=== PATIENT | female | born 1960 | race Caucasian/White ===

== ENCOUNTER 2016-11-23 15:35 | Observation (INO) ==
--- NOTE | 2016-11-23 15:52 | Emergency Department Note ---
Disposition Clinical Impression: Altered mental status Qualifiers: Altered mental status type: unspecified Qualified Code(s): R41.82 - Altered mental status, unspecified UTI (urinary tract infection) Qualifiers: Urinary tract infection type: acute cystitis Hematuria presence: without hematuria Qualified Code(s): N30.00 - Acute cystitis without hematuria Disposition: Admitted As Inpatient Condition: Fair Referrals: Adri Andujar MD [Primary Care Provider] - Time of Disposition: 17:17 Altered Mental Status HPI - General Stated Complaint: AMS LKW possible 10? Time Seen by Provider: 11/23/16 15:40 Source: patient, family Mode of arrival: ambulatory Limitations: altered mental status Nursing Notes Reviewed: Yes Vital Signs Reviewed: Yes - History of Present Illness HPI Narrative: 56-year-old had an acute onset of confusion asking the same questions over and over and short-term memory loss about 10:00 this morning. Daughter states that she did not appear to have any weakness or did not complain of any numbness or vision changes. Her symptoms seem to have improved some and she is able to say where she is at. She did have the episode of putatively asking the same things over and over and forgetting what had happened. Patient also complains of a headache. complaint: confusion, other (Short-term memory loss) Onset (ago): hour(s) (6) Timing confirmed by: family member Pain Severity: moderate Context: unknown Associated symptoms: Denies: chest pain, syncope, weakness, difficulty walking Treatments prior to arrival: other (None) - Related Data Allergies Allergy/AdvReac Type Severity Reaction Status Date / Time No Known Allergies Allergy Verified 11/23/16 17:40 All systems ED: reviewed and negative except as stated. Constitutional: Denies: fever, chills, weakness, weight change Eyes: Denies: eye pain, eye discharge, vision change ENT ED: Denies: ear pain, throat pain, dental pain, hearing loss, epistaxis, congestion, dysphagia Cardiovascular: Denies: chest pain, palpitations, dyspnea on exertion, edema, syncope Respiratory: Denies: cough, dyspnea, wheezes, hemoptysis, stridor Gastrointestinal: Denies: abdominal pain, nausea, vomiting, diarrhea, constipation, hematemesis, melena, hematochezia Genitourinary: Denies: dysuria, frequency, hematuria, discharge Musculoskeletal: Denies: back pain, neck pain, arthralgia, myalgia Integumentary: Denies: rash, abrasion, lesions Neurological: Reports: headache, other (Mental status short-term memory loss). Denies: weakness, numbness, paresthesias, confusion, abnormal gait, vertigo Psychiatric: Denies: anxiety, depression, suicidal thoughts, homicidal thoughts , auditory hallucinations, visual hallucinations Endocrine: Denies: fatigue Hematological/Lymphatic: Denies: easy bleeding, easy bruising Allergic/Immunologic: Denies: facial swelling, urticaria Physical Exam - General Limitations: no limitations General appearance: alert, in no apparent distress - Head Head exam: atraumatic, normocephalic, normal inspection - Eye Eye exam: Present: normal appearance, PERRL, EOMI - ENT ENT exam: normal exam, normal oropharynx, mucous membranes moist - Neck Neck exam: Present: normal inspection, full ROM, trachea midline - Chest Chest inspection: Present: normal inspection, symmetric chest wall rise - Respiratory Respiratory exam: Present: normal lung sounds bilaterally - Cardiovascular Cardiovascular exam: Present: regular rate, normal rhythm, normal heart sounds - Abdominal Exam Abdominal exam: Present: soft, Non-Tender. Absent: tenderness, distention, guarding, rebound, rigidity - Extremities Exam Extremities exam: Present: normal inspection, full ROM. Absent: tenderness, pedal edema - Expanded Lower Extremity Exam Neurovascular/Tendon exam: Absent: motor deficit, sensory deficit, tendon deficit Gait: observed and normal - Back Exam Back exam: Present: normal inspection, full ROM. Absent: tenderness - Neurological Exam Neurological exam: Present: alert, oriented X3, normal gait. Absent: motor sensory deficit - Psychiatric Psychiatric exam: Present: normal affect, normal mood - Skin Skin exam: Present: warm, dry, intact, normal color Course - Reevaluation(s) Reevaluation #1: 56-year-old female who comes in complaining of confusion and loss of short-term memory today asking repeatedly over and over the same question about a history of head trauma. No CT scan is negative. Lab work is unremarkable. There is some concern with family with the early onset dementia. Differential would include transient global amnesia. Time: 17:15 - Consultations Consultation #1: Discussed with , it. Time: 17:15 Consultation #2: Discussed with , admit Time: 17:55 Vital Signs Temperature 98.2 F 11/23/16 15:40 Pulse Rate 81 11/23/16 15:40 Respiratory Rate 16 11/23/16 15:40 Blood Pressure 139/86 11/23/16 15:40 O2 Sat by Pulse Oximetry 100 11/23/16 15:40 Temperature 98.2 F 11/23/16 15:40 Pulse Rate 88 11/23/16 17:47 Respiratory Rate 16 11/23/16 17:47 Blood Pressure 132/75 11/23/16 17:47 O2 Sat by Pulse Oximetry 97 11/23/16 17:47 Oxygen Delivery Oxygen Delivery Room Air Altered Mental Status - Lab Data Result diagrams: 11/23/16 16:00 11/23/16 16:00 Lab Results 11/23/16 11/23/16 11/23/16 Range/Units 15:47 16:00 16:00 WBC 8.0 (4.3-11.1) K/mcL RBC 4.56 (3.82-4.97) M/mcL Hgb 13.3 (11.5-15.4) g/dL Hct 39.8 (35.3-44.9) % MCV 87.3 (83.0-100.0) fL MCH 29.2 (28.0-33.3) pg MCHC 33.4 (31.6-35.5) g/dL RDW 12.0 (11.5-14.5) % Plt Count 311 (140-400) K/mcL MPV 8.6 L (9.4-12.4) fL Immature Gran % 0.1 (0-4) % Seg Neutrophils % 80.1 % Lymphocytes % 15.2 % Monocytes % 3.9 % Eosinophils % 0.3 % Basophils % 0.4 % Neutrophils # 6.4 (1.6-8.9) K/mcL Lymphocytes # 1.2 (0.6-4.6) K/mcL Monocytes # 0.3 (0.0-1.3) K/mcL Eosinophils # 0.0 (0.0-0.6) K/mcL Basophils # 0.0 (0.0-0.2) K/mcL PT 10.6 (9.4-12.1) Seconds INR 1.0 APTT 26.5 (26.0-36.0) Seconds Sodium (136-145) mEq/L Potassium (3.5-4.5) mEq/L Chloride (98-109) mEq/L Carbon Dioxide (19-29) mEq/L BUN (7-20) mg/dL Creatinine (0.57-1.11) mg/dL Est GFR ( Amer) (> 60) Est GFR (Non-Af Amer) (> 60) BUN/Creatinine Ratio (6-26) Glucose (70-99) mg/dL POC Glucose 107 H (58-89) Calculated Osmolality (280-300) Calcium (8.6-10.8) mg/dL Magnesium (1.6-2.6) mg/dL Troponin I (0-0.03) ng/mL Urine Color (Yellow) Urine Clarity (Clear) Urine pH (5.0-8.0) pH Units Ur Specific [place] (1.010-1.025) Urine Protein (Neg-Trace) mg/dL Urine Glucose (UA) (Normal) mg/dL Urine Ketones (Negative) mg/dL Urine Blood (Negative) Urine Nitrite (Negative) Urine Bilirubin (Negative) Urine Urobilinogen (Normal) mg/dL Ur Leukocyte Esterase (Negative) Urine Microscopic RBC (0-3) per hpf Urine Microscopic WBC (0-3) per hpf Ur Squamous Epith Cells (None-Few) per lpf Urine Bacteria (None-Few) per hpf Hyaline Casts (None-Few) per lpf Ur Culture Indicated? (NO) 11/23/16 11/23/16 11/23/16 Range/Units 16:00 16:00 17:15 WBC (4.3-11.1) K/mcL RBC (3.82-4.97) M/mcL Hgb (11.5-15.4) g/dL Hct (35.3-44.9) % MCV (83.0-100.0) fL MCH (28.0-33.3) pg MCHC (31.6-35.5) g/dL RDW (11.5-14.5) % Plt Count (140-400) K/mcL MPV (9.4-12.4) fL Immature Gran % (0-4) % Seg Neutrophils % % Lymphocytes % % Monocytes % % Eosinophils % % Basophils % % Neutrophils # (1.6-8.9) K/mcL Lymphocytes # (0.6-4.6) K/mcL Monocytes # (0.0-1.3) K/mcL Eosinophils # (0.0-0.6) K/mcL Basophils # (0.0-0.2) K/mcL PT (9.4-12.1) Seconds INR APTT (26.0-36.0) Seconds Sodium 139 (136-145) mEq/L Potassium 3.3 L (3.5-4.5) mEq/L Chloride 103 (98-109) mEq/L Carbon Dioxide 28 (19-29) mEq/L BUN 14 (7-20) mg/dL Creatinine 0.71 (0.57-1.11) mg/dL Est GFR ( Amer) > 60 (> 60) Est GFR (Non-Af Amer) > 60 (> 60) BUN/Creatinine Ratio 20 (6-26) Glucose 104 H (70-99) mg/dL POC Glucose (58-89) Calculated Osmolality 289 (280-300) Calcium 9.3 (8.6-10.8) mg/dL Magnesium 2.1 (1.6-2.6) mg/dL Troponin I 0.00 (0-0.03) ng/mL Urine Color Yellow (Yellow) Urine Clarity Cloudy A (Clear) Urine pH 8.0 (5.0-8.0) pH Units Ur Specific [place] 1.014 (1.010-1.025) Urine Protein Trace (Neg-Trace) mg/dL Urine Glucose (UA) Normal (Normal) mg/dL Urine Ketones 40 H (Negative) mg/dL Urine Blood Small H (Negative) Urine Nitrite Negative (Negative) Urine Bilirubin Negative (Negative) Urine Urobilinogen Normal (Normal) mg/dL Ur Leukocyte Esterase Small H (Negative) Urine Microscopic RBC 15-30 H (0-3) per hpf Urine Microscopic WBC 5-15 H (0-3) per hpf Ur Squamous Epith Cells Moderate H (None-Few) per lpf Urine Bacteria None Seen (None-Few) per hpf Hyaline Casts None Seen (None-Few) per lpf Ur Culture Indicated? YES A (NO) - EKG Data EKG attestation: Yes I reviewed and interpreted this EKG. EKG shows normal: sinus rhythm Rate: normal Rhythm: NSR Interpretation: no acute changes TPA Checklist - Eligibilty for IV tPA 1. LKW equal to or less than 4.5 hours be before treatment: No - LKW: 3-4.5 hrs Add. Warnings/Precautions Patient/family understanding: The patient/family members have been counseled and understood the risk, benefit , and alternatives of treatment. NIH Stroke Scale - Level of Consciousness LOC: Alert - LOC Questions LOC Questions: Answers both correctly - LOC Commands LOC Commands: Performs both correctly - Best Gaze Best Gaze: Normal - Visual Visual: No visual loss - Facial Palsy Facial Palsy: Normal - Motor Arms Motor Arm-Left: No drift for 10 seconds Motor Arm-Right: No drift for 10 seconds - Motor Legs Motor Leg-Left: No drift for 5 seconds Motor Leg-Right: No drift for 5 seconds - Limb Ataxia Limb Ataxia: Normal, No Ataxia - Sensory Sensory: Normal - Best Language Best Language: No aphasia - Dysarthria Dysarthria: Normal - Extinction and Inattention Extinction and Inattention: Normal - NIHSS Total Score NIHSS Total Score: 0
[2016-11-23 16:21] LABS: Basophils % 0.4 %; Eosinophils % 0.3 %; Hematocrit 39.8 % (35.3-44.9); Hemoglobin 13.3 g/dL (11.5-15.4); Immature Granulocytes % 0.1 % (0-4); Lymphocytes # 1.2 K/mcL (0.6-4.6); Lymphocytes % 15.2 %; Mean Corpuscular HGB Conc 33.4 g/dL (31.6-35.5); Mean Corpuscular Hemoglobin 29.2 pg (28.0-33.3); Mean Corpuscular Volume 87.3 fL (83.0-100.0); Mean Platelet Volume 8.6 fL (9.4-12.4); Monocytes # 0.3 K/mcL (0.0-1.3); Monocytes % 3.9 %; Neutrophils # 6.4 K/mcL (1.6-8.9); Platelet Count 311 K/mcL (140-400); Red Blood Count 4.56 M/mcL (3.82-4.97); Segmented Neutrophils % 80.1 %
[2016-11-23 16:25] LABS: Prothrombin Time 10.6 Seconds (9.4-12.1)
[2016-11-23 16:27] LABS: Activated Partial Thrombo Time 26.5 Seconds (26.0-36.0)
[2016-11-23 16:33] LABS: BUN/Creatinine Ratio 20 (6-26); Blood Urea Nitrogen 14 mg/dL (7-20); Calcium 9.3 mg/dL (8.6-10.8); Carbon Dioxide 28 mEq/L (19-29); Chloride 103 mEq/L (98-109); Glucose 104 mg/dL (70-99); Magnesium 2.1 mg/dL (1.6-2.6); Osmolality,Calculated 289 (280-300); Potassium 3.3 mEq/L (3.5-4.5); Sodium 139 mEq/L (136-145); eGFR For African Americans > 60 (> 60); eGFR For Non-African Americans > 60 (> 60)
[2016-11-23 17:20] LABS: Bilirubin,Urine Negative (Negative); Blood,Urine Small (Negative); Clarity,Urine Cloudy (Clear); Color,Urine Yellow (Yellow); Glucose,Urine (UA) Normal (Normal); Ketones,Urine 40 mg/dL (Negative); Leukocyte Esterase,Urine Small (Negative); Nitrite,Urine Negative (Negative); Protein,Urine Trace mg/dL (Neg-Trace); Specific Gravity,Urine 1.014 (1.010-1.025); Urobilinogen,Urine Normal (Normal)
[2016-11-23 17:25] LABS: Bacteria,Urine None Seen per hpf (None-Few); Hyaline Casts,Urine None Seen per lpf (None-Few); RBC,Urine 15-30 per hpf (0-3); Squamous Epithelial Cell,Urine Moderate per lpf (None-Few)
[2016-11-23] MEDS ORDERED: Acetaminophen 325 MG TABLET PO ONE (17:41)
[2016-11-23] MEDS ORDERED: Aspirin 81 MG TAB.CHEW PO STA (17:55)
[2016-11-23] MEDS ORDERED: Ondansetron 4 MG/2 ML VIAL IVP PRN (18:08)
[2016-11-23] MEDS ORDERED: Acetaminophen 325 MG TABLET PO PRN (18:08)
[2016-11-23] MEDS ORDERED: Naloxone 0.4 MG/ML INJ IVP PRN (18:08)
--- NOTE | 2016-11-23 19:00 | Internal Med History&Physical ---
<Sabrina Ramirez - Last Filed: 11/23/16 20:14> Date of Encounter: 11/23/16 Time of Encounter: 18:59 Assessment and Plan (1) TIA (transient ischemic attack) Current visit: Yes Status: Suspected 1 patient had an episode of headache this a.m. describing it as bandlike sharp. Approximately 10:00 and 11 AM the patient had an episode of emesis was unable to recall events of the day and would ask questions repetitively concerning events of the day. She has no past history of seizures stroke or head trauma. Unsure if this is related to migraine, infectious process, or TIA CT of head was negative for any intracranial abnormalities. 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 6 obtain cardiac echo 7 carotid Dopplers 8: Fall precautions Qualifiers: Transient cerebral ischemia type: unspecified Qualified Code(s): G45.9 - Transient cerebral ischemic attack, unspecified (2) UTI (urinary tract infection) Current visit: No Status: Acute We will continue with Rocephin Qualifiers: Urinary tract infection type: acute cystitis Hematuria presence: without hematuria Qualified Code(s): N30.00 - Acute cystitis without hematuria (3) DVT prophylaxis Current visit: Yes Status: Acute 1 Lovenox subcutaneous Internal Medicine - H&P: HPI Chief complaint: confusion Admitted From: Emergency Dept Plans for Post Hospital Care: Home History of present illness: Ms. Merrill is a 56 year old female past history of headaches. According to the patient she did have a headache this morning which she described as encircling her head describing the pain as sharp. She states that she has past history of headaches and she felt this was another episode. She did take some Motrin however around 10-11 she began to have vomiting and experienced confusion. According to daughters patient would repetitively ask questions, unsure of events that had occurred that day. Her confusion worsened, daughters became concerned and brought patient to the ER for evaluation She denied any weakness or vision changes or facial droop. Denies any recent falls or head trauma.. The daughters did express some concern with early onset of dementia. Upon presentation to the ER patient was slow to answer questions however was alert and oriented 3. CT of head was obtained which negative for any intracranial abnormalities. Urinalysis did suggest a mild UTI. The leukocytosis some hypokalemia otherwise lab work unremarkable. ER physician did speak with neurology who will see patient for consult She has been admitted for further workup and evaluation. Presently patient is alert oriented 3 following simple commands properly answering questions. Cranial nerves 2 through 12 are intact no focal deficits noted. Equal strength in all 4 extremities. Lung sounds are clear heart sounds are regular S1 and S2 with nogallops murmurs noted EKG sinus rhythm with no ST-T wave abnormalities. No pedal edema. She is hemodynamically stable at this time she denies any pain or discomfort I reviewed this case with Dr. Bermeo who agrees with plan Past Med Surg Social Fam HX - Past Medical History Medical history: no medical history Psychiatric history: no psych history - Social History Smoking Status: Never smoker Smokeless Tobacco Status: No Alcohol use: occasionally Drug use: none - Family History Mother Living Status: Still Living Hx Family Endocrine Disorder: Yes (DM) Internal Medicine - H&P: Meds 3 Allergy/AdvReac Type Severity Reaction Status Date / Time No Known Allergies Allergy Verified 11/23/16 17:40 All Systems PM: A 10-system review of systems was performed and is negative for pertinent findings except as documented above in the HPI. - Constitutional Constitutional: no chills, no fever(s), no night sweats - EENT Eyes: no change in vision, no discharge, no pain, no photophobia Nose, mouth and throat: no dysphagia, no nasal discharge, no neck pain, no sore throat - Cardiovascular Cardiovascular ROS IM: no chest pain, no diaphoresis, no dyspnea, no lightheadedness, no palpitations, no syncope - Respiratory Respiratory: no cough, no dyspnea, no wheezing, no excessive phlegm production - Gastrointestinal Gastrointestinal: no abdominal pain, no diarrhea, no hematemesis, no hematochezia, no melena, no nausea, no vomiting - Genitourinary Genitourinary: no change in urinary stream, no dysuria, no flank pain, no hematuria - Musculoskeletal Musculoskeletal ROS IM: no numbness, no tingling - Neurological Neurological ROS: headache(s), memory loss - Hematologic/Lymphatic Hematologic/Lymphatic: no easy bruising - Constitutional Vitals: Temp Pulse Resp BP Pulse Ox 98.6 F 79 15 125/70 95 11/23/16 18:57 11/23/16 18:57 11/23/16 18:57 11/23/16 18:57 11/23/16 18:57 General appearance: Present: A&O X 3, answers questions appropriately - Head Head exam: Present: atraumatic, normocephalic - Eye Eye exam: Present: PERRL, conjuntiva pink, sclera anicteric Pupils: Present: PERRL - Neck Neck exam general surgery: Present: supple, trachea midline. Absent: lymphadenopathy - Respiratory Respiratory exam: Present: CTAB. Absent: accessory muscle use, rales, rhonchi, wheezes - Cardiovascular Cardiovascular exam: Present: RRR, +S1, +S2. Absent: diastolic murmur, gallop, rubs, systolic murmur - GI/Abdominal GI/Abdominal exam: Present: normal bowel sounds, soft, no peritoneal signs. Absent: distended, tenderness - Extremities Exam Extremities exam: Present: warm, radial pulses palpable and symmetrical. Absent : calf tenderness, cyanotic, pedal edema - Neurological Exam Neurological exam: Present: alert, CN II-XII intact, oriented X3, no focal deficits, strengths equal and symetr throughout. Absent: pronater drift, facial droop, speech deficit - Skin Skin exam: Present: dry, intact Internal Med - H&P Results - Labs CBC & Chem 7: 11/23/16 16:00 11/23/16 16:00 - EKG Data EKG shows normal: sinus rhythm Rate: normal - EKG Data Prior EKG available for review: no - Diagnostic Studies Other Images Additional comments: Head CT 11/23/16 15:44 IMPRESSION: No acute intracranial abnormality. D/ / Petros Vidal MD / Petros Vidal MD Interpreting Provider: Petros Vidal MD Chest X-Ray 11/23/16 15:46 IMPRESSION: No acute process. D/ / Kirill Larsen MD / Kirill Larsen MD Interpreting Provider: Kirill Larsen MD <Min Horn - Last Filed: 11/23/16 23:54> Date of Encounter: 11/23/16 Internal Medicine - H&P: HPI History of present illness: Ms. Merrill is a 56 year old female All Systems PM: A 10-system review of systems was performed and is negative for pertinent findings except as documented above in the HPI. - Constitutional Vitals: Temp Pulse Resp BP Pulse Ox 97.9 F 76 15 111/62 95 11/23/16 23:26 11/23/16 23:26 11/23/16 23:26 11/23/16 23:26 11/23/16 23:26 Internal Med - H&P Results - Labs CBC & Chem 7: 11/23/16 16:00 11/23/16 16:00 Labs: Cardiac Enzymes 11/23/16 Range/Units 22:35 Troponin I 0.00 (0-0.03) ng/mL - Impressions ITS Impressions Brain MRI 11/23/16 19:34 IMPRESSION: No acute intracranial abnormality. Trace nonspecific cerebral white matter T2 FLAIR hyperintensities typical of chronic microvascular ischemic changes. D/ / Chris Kelley / Chris Kelley Interpreting Provider: Chris Kelley - Attending Attestation I examined this patient and my medical decision-making was reviewed with the [employer]. I agree with the documented findings, disposition and treatment plan as described except to the extent set forth below. Patient is a 56-year-old female with no significant past medical history. She presented to the ED with complaints of headache and intermittent episodes of confusion. No focal weakness or facial droop. No slurred speech. Patient's daughters are at bedside and they stated the patient has been having intermittent confusion throughout the day. At present patient is awake and alert. She is oriented 3. She does not have any focal deficits and she is able to verbalize and follows verbal commands. Initial workup including CT head is negative. Patient does have a UTI and has been started on Rocephin. EKG does not show any acute ST-T changes. Chest x-ray is negative. Stroke workup is pending. Patient just had an MRI of the brain and does not show any acute infarct. Patient will need echocardiogram and carotid Dopplers. Heart rate 76, blood pressure 111/62, O2 sat 95% on room air. Heart S1-S2 positive. Lungs: Good air entry no wheeze or crackles. Abdomen soft nontender no masses or guarding. Extremity pulses, no edema. Neurological no focal density screening nerves intact.
[2016-11-24 05:05] LABS: Basophils % 0.7 %; Eosinophils # 0.1 K/mcL (0.0-0.6); Hematocrit 36.6 % (35.3-44.9); Hemoglobin 12.5 g/dL (11.5-15.4); Immature Granulocytes % 0.2 % (0-4); Lymphocytes # 2.2 K/mcL (0.6-4.6); Lymphocytes % 36.3 %; Mean Corpuscular HGB Conc 34.2 g/dL (31.6-35.5); Mean Corpuscular Hemoglobin 30.3 pg (28.0-33.3); Mean Corpuscular Volume 88.6 fL (83.0-100.0); Mean Platelet Volume 8.7 fL (9.4-12.4); Monocytes # 0.5 K/mcL (0.0-1.3); Monocytes % 8.7 %; Neutrophils # 3.2 K/mcL (1.6-8.9); Platelet Count 308 K/mcL (140-400); Red Blood Count 4.13 M/mcL (3.82-4.97); Red Cell Distribution Width 12.1 % (11.5-14.5); Segmented Neutrophils % 52.1 %
[2016-11-24 05:24] LABS: BUN/Creatinine Ratio 17 (6-26); Blood Urea Nitrogen 13 mg/dL (7-20); Carbon Dioxide 26 mEq/L (19-29); Chloride 107 mEq/L (98-109); Chol/HDL Ratio 4.1 (0-4.9); Cholesterol 199 mg/dL (< 200); Glucose 90 mg/dL (70-99); HDL Cholesterol 49 mg/dL (40-59); LDL Cholesterol,Calculated 137 mg/dL (0-99); Magnesium 2.2 mg/dL (1.6-2.6); Osmolality,Calculated 290 (280-300); Potassium 3.8 mEq/L (3.5-4.5); Sodium 140 mEq/L (136-145); Triglycerides 67 mg/dL (< 150); eGFR For African Americans > 60 (> 60); eGFR For Non-African Americans > 60 (> 60)
[2016-11-24] MEDS ORDERED: Aspirin Enteric Coated 81 MG Tablet PO SCH (09:00)
--- NOTE | 2016-11-24 10:16 | Neurology - Consult Note ---
<Kingsley Frye - Last Filed: 11/24/16 11:37> Date of Encounter: 11/24/16 Time of Encounter: 09:30 Assessment and Plan (1) Transient neurologic deficit Current Visit: Yes Status: Acute Patient reports having confusional loss of memory following headache yesterday. Her daughter told him the details of the patient has complete loss of memory during that timeframe. Patient was reportedly asking the same question repeatedly. MRI patient brain performed did not show any acute abnormalities, but did show findings consistent with chronic microvascular ischemic change and echocardiogram showed mild diastolic dysfunction. Differential for transient memory loss could be complex migraines, seizure, tia, substance use, or transient global amnesia. Recommend daily aspirin Recommend Lipitor Will obtain tox screen and EEG to further evaluate potential causes of memory loss Recommend outpatient follow up with neurology (2) Chronic headaches Current Visit: Yes Status: Acute Patient reports history as severe headaches. She reports they happen infrequently but are associated with yawning, drinking water, and emesis. She states normally go away after significant tracheal water and taking a walk. This most recent event did not and the swelling and she began having some confusion and loss of antergrade memory. Her headaches are occasional and usually resolve after emesis. Her reported headache began with waking that is relatively inconsistent with migraine Qualifiers: Headache type: unspecified Intractability: not intractable Qualified Code (s): R51 - Headache History of Present Illness Chief complaint: Headache and memory problems HPI: Ms. Merrill is a 56 year old female with past medical history of headaches present to [place] yesterday afternoon after having been found by family to be confused. Patient states she woke yesterday morning around 8 AM with a headache and proceeded to go to [facility] at about 10. While there she was given ibuprofen and ended up going home 11. She states she was yawning a lot, drinking water, and begin to have some emesis. She states that the yawning, drinking, and emesis are usual for her severe headaches. She states she has these headaches infrequently, but that she has had that most of her life. Normally she drinks a lot of water and goes for walk in the headaches typically improved after emesis. On this occasion the she began to experience some confusion, at this point she does not remember the events for the next 5 hours, but her daughter is present to fill in the missing timeframe. Daughter states that the patient texted her at about 12:30 and called her at 2:30 in the afternoon with some confusion and the other daughter was alerted and checked on the patient. Apparently the patient was asking the same questions repeatedly and was determined to be best to come to the hospital. At the hospital the patient received a head CT and IV was started, the patient does not remember any of this. The next time the patient remembers is at about 5:00 in the afternoon. At that point the patient did not have a headache. She denies having any vision changes, weakness, or sensory changes during this time. She states she woke up this morning with some slight hand tingling, but thinks this is from sleeping on her hand awkwardly. She states she has had a light headache, on and off, during the day today. She denies fever and chills. Denies chest pain, denies shortness of breath, reports possible palpitations associated with cough. Past Med Surg Social Fam HX - Past Medical History Medical history: no medical history Psychiatric history: no psych history - Social History Smoking Status: Never smoker Smokeless Tobacco Status: No Alcohol use: occasionally Drug use: none - Family History Mother Name: Berkley Hill. Age: 79 Family Member Ethnicity: Living Status: Still Living Hx Family GI Disorders: Yes (Diverticulitis) Hx Family Endocrine Disorder: Yes (Diabetes) Hx Family Musculoskeletal Disorders: Yes (Osteoporosis) Hx Family Neurologic Disorders: Yes (reports calcification in brain that gives severe headaches.) Medications and Allergies No Known Home Drugs 11/24/16 [History] 3 Allergy/AdvReac Type Severity Reaction Status Date / Time No Known Allergies Allergy Verified 11/23/16 17:40 Review of Systems: Gen: Denies fever, denies chills, denies weakness CV: Denies chest pain, reports palpitations Resp: Denies shortness of breath, reports minor coughing, denies wheeze GI: Denies nausea, denies vomiting currently, reports vomiting yesterday, denies abdominal pain Neuro: Reports light headache currently, reports severe headache yesterday, reports confusion yesterday as per history of present illness, reports loss of memory yesterday as per history of present illness, denies focal weakness, denies numbness, reports tingling associated with sleeping on arm wrong, denies vision changes Skin: Denies bruising, denies rash : Denies flank pain, denies dysuria, denies hematuria Physical Examination - Vital Signs Vital Signs: Initial Vital Signs Temp Pulse Resp BP Pulse Ox 98.2 F 81 16 139/86 100 11/23/16 15:40 11/23/16 15:40 11/23/16 15:40 11/23/16 15:40 11/23/16 15:40 - Exam Exam: General: Cooperative, pleasant, no acute distress, alert and oriented 3, answers questions appropriately HEENT: Normocephalic, atraumatic, neck supple, trachea midline, Conjunctiva pink , sclera anicteric, EOMI, PERRL, oral mucosa moist, no orophargeal erythema or exudates Respiratory: No accessory muscle usage, clear to auscultation bilaterally, no wheezes/rhonchi/rales appreciated Cardiovascular: Regular rate and rhythm, S1 and S2 present, no murmurs/rubs/ gallops/clicks appreciated Extremities: No calf tenderness, noncyanotic, no pedal edema appreciated, warm, lower extremity pulses palpable and symmetrical Neurological: Alert and oriented 3, no facial droop, no focal deficits, cranial nerves II through XII intact without focal deficits, finger to nose smooth and accurate, sensation to gross touch intact bilaterally in upper and lower extremities, strength 5/5 in upper and lower extremity bilaterally, DTRs 2 +/4 in upper and lower shoulders bilaterally Skin: Dry, intact, normal color Results - Laboratory Findings CBC and BMP: 11/24/16 04:40 11/24/16 04:40 Abnormal lab findings: Abnormal lab results MPV 8.7 fL (9.4-12.4) L 11/24/16 04:40 POC Glucose 107 (58-89) H 11/23/16 15:47 LDL Cholesterol, Calc 137 mg/dL (0-99) H 11/24/16 04:40 Urine Clarity Cloudy (Clear) A 11/23/16 17:15 Urine Ketones 40 mg/dL (Negative) H 11/23/16 17:15 Urine Blood Small (Negative) H 11/23/16 17:15 Ur Leukocyte Esterase Small (Negative) H 11/23/16 17:15 Urine Microscopic RBC 15-30 per hpf (0-3) H 11/23/16 17:15 Urine Microscopic WBC 5-15 per hpf (0-3) H 11/23/16 17:15 Ur Squamous Epith Cells Moderate per lpf (None-Few) H 11/23/16 17:15 Ur Culture Indicated? YES (NO) A 11/23/16 17:15 Consult Discharge Plan - Plan Referrals: Adri Andujar MD [Primary Care Provider] - <Filemon Donis - Last Filed: 11/24/16 12:21> Date of Encounter: 11/24/16 Assessment and Plan (1) Transient neurologic deficit Current Visit: Yes Status: Acute I saw and examined the patient in the presence of Dr. Kingsley Frye and i agree with history taking, physical examination, assessment and plan. MRI of brain and CT of head images were reviewed together. Plus the above mentioned possibilities, the patient also has mixed chronic headaches with migrainous components. She may have also a component of rebound headache due to frequent use of ibuprofen. The headaches can occur upon waking up therefore could represent a type of rebound headache. Advised to avoid regular use of analgesic. Will follow her as an outpatient for her chronic headaches. Will obtain EEG and URS. Anticipate that she will be discharged today. History of Present Illness HPI: Ms. Merrill is a 56 year old female All Systems: A 10-system review of systems was performed and is negative for pertinent findings except as documented above in the HPI. Physical Examination - Vital Signs Vital Signs: Initial Vital Signs Temp Pulse Resp BP Pulse Ox 98.2 F 81 16 139/86 100 11/23/16 15:40 11/23/16 15:40 11/23/16 15:40 11/23/16 15:40 11/23/16 15:40 Results - Laboratory Findings CBC and BMP: 11/24/16 04:40 11/24/16 04:40 Abnormal lab findings: Abnormal lab results MPV 8.7 fL (9.4-12.4) L 11/24/16 04:40 POC Glucose 107 (58-89) H 11/23/16 15:47 LDL Cholesterol, Calc 137 mg/dL (0-99) H 11/24/16 04:40 Urine Clarity Cloudy (Clear) A 11/23/16 17:15 Urine Ketones 40 mg/dL (Negative) H 11/23/16 17:15 Urine Blood Small (Negative) H 11/23/16 17:15 Ur Leukocyte Esterase Small (Negative) H 11/23/16 17:15 Urine Microscopic RBC 15-30 per hpf (0-3) H 11/23/16 17:15 Urine Microscopic WBC 5-15 per hpf (0-3) H 11/23/16 17:15 Ur Squamous Epith Cells Moderate per lpf (None-Few) H 11/23/16 17:15 Ur Culture Indicated? YES (NO) A 11/23/16 17:15
[2016-11-24] MEDS ORDERED: Ondansetron 4 MG/2 ML VIAL IVP PRN (11:52)
[2016-11-24 11:59] VITALS: BP 101/68
[2016-11-24 12:56] LABS: Amphetamine Screen,Urine Negative ng/mL (Cutoff=1000); Barbiturate Screen,Urine Negative ng/mL (Cutoff=200); Benzodiazepines Screen,Urine Negative ng/mL (Cutoff=200); Cannabinoid Screen,Urine Negative ng/mL (Cutoff = 50); Cocaine Screen,Urine Negative ng/mL (Cutoff= 300); Opiate Screen,Urine Negative ng/mL (Cutoff=300); Phencyclidine Screen,Urine Negative ng/mL (Cutoff=25)
--- NOTE | 2016-11-24 14:41 | Discharge Summary ---
<Foster Staples - Last Filed: 11/24/16 15:16> Date of Encounter: 11/24/16 Time of Encounter: 09:10 - Discharge Diagnosis (1) Transient neurologic deficit Priority: Primary Status: Resolved Comments: The patient is still having headache, however is no longer having any acute focal neurological deficits. The patient still does not recall any events that occurred during the time for which she had confusion MRI and carotid duplex ultrasound both indicated no acute abnormalities MRI does demonstrate findings consistent with chronic microvascular ischemic changes Echocardiogram is within normal limits outside of mild diastolic dysfunction Tox screen negative, EEG within normal limits Deficits likely secondary to complex migraines, patient to be discharged on amitriptyline for migraine prophylaxis Patient will start aspirin, however she has not at this point interested in starting statin. She said she would like to attempt lifestyle modifications prior to starting a statin (2) UTI (urinary tract infection) Priority: Secondary Status: Acute Comments: Urinalysis positive for UTI, culture indeterminate. Repeat culture pending Patient has been treated for 24 hours with ceftriaxone Patient will be discharged on 4 days of Macrobid twice a day and follow up with primary care Qualifiers: Urinary tract infection type: acute cystitis Hematuria presence: with hematuria Qualified Code(s): N30.01 - Acute cystitis with hematuria (3) Chronic headaches Priority: Secondary Status: Chronic Comments: The patient has been taking ibuprofen for headache as needed with some success We will discharge the patient on amitriptyline for migraine prophylaxis Follow-up in 1-2 weeks for long-term management. Qualifiers: Headache type: unspecified Intractability: not intractable Qualified Code (s): R51 - Headache (4) Altered mental status Priority: Primary Status: Resolved Comments: See above Qualifiers: Altered mental status type: transient alteration of awareness Qualified Code(s): R40.4 - Transient alteration of awareness (5) DVT prophylaxis Priority: Secondary Status: Acute Comments: Patient was treated with subcutaneous heparin - Discharge Medications Prescriptions: Amitriptyline [Elavil] 10 mg PO HS #30 tablet Aspirin Enteric Coated [Aspirin EC] 81 mg PO DAILY #30 tablet.dr Mark [Lipitor] 40 mg PO HS #30 tablet Nitrofurantoin (BID) [Macrobid] 100 mg PO BID #8 capsule Home Medications: Amitriptyline [Elavil] 10 mg PO HS #30 tablet 11/24/16 [Rx] Aspirin Enteric Coated [Aspirin EC] 81 mg PO DAILY #30 tablet. 11/24/16 [Rx] Atorvastatin [Lipitor] 40 mg PO HS #30 tablet 11/24/16 [Rx] Nitrofurantoin (BID) [Macrobid] 100 mg PO BID #8 capsule 11/24/16 [Rx] Allergies/Adverse Reactions: 3 Allergy/AdvReac Type Severity Reaction Status Date / Time No Known Allergies Allergy Verified 11/23/16 17:40 Procedures/tests Complete & Pending: Procedures Performed prior 72 hours Category Date Time Status MR head/brain wo con [MR] Stat MRI 11/23/16 19:34 Completed EV carotid duplex imaging BI Routine Y 11/24/16 19:36 Completed EV echocardiogram Routine Y 11/24/16 19:36 Completed Date of admission: 11/23/16 18:08 Primary care physician: Adri Andujar Consults: 11/24/16 08:00 Consult to Charger Tester [CONS] Routine Reason for SW Consult: Patient has financial concerns about hospital stay, has no health insurance. Discharging clinician: Foster Staples Anticipated date of discharge: 11/24/16 - Patient Status Disposition: Home, Self-Care Condition: Good Functional capacity at discharge: independent ambulation Overall status at discharge: patient is back to baseline - Discharge Instructions Instructions: Amitriptyline (By mouth), Atorvastatin (By mouth), Nitrofurantoin Combination (By mouth) Follow Up With: Foster Staples DO [Resident] - (Please call to schedule a follow up appointment with Dr Staples within 5-7 days) Forms: ED Satisfaction Letter Additional Instructions: Patient would like to follow up with Dr. Staples in the residency clinic. Schedule follow up 1-2weeks. Patient should see Dr. Donis outpatient. - Diet and Activity Activity: increase activity as tolerated Diet: advance to your usual diet Hospital course: Ms. Merrill is a 56 year old female with history of frequent and chronic headaches. The patient says that she was experiencing a headache on the day of admission and she described the headache as a band encircling her head with sharp pain. Shortly after the initiation of the headache, began having nausea and vomiting, and she became temporarily confused and disoriented. According to family she was asking the same questions over and over again, and she could not remember the events that were occurring during that time. Upon presentation to the ED, the patient was slow to answer questions however was alert and oriented 3. CT of the head was obtained and was negative for any intracranial abnormalities, urinalysis did suggest a mild UTI. Leukocytosis was found, and neurology was consulted by the ED. The patient was admitted to the hospital on ceftriaxone for her UTI, MRI was ordered and was found to be negative for any intracranial abnormalities, however did demonstrate chronic changes associated with microvascular disease. Echocardiography demonstrated no arrhythmia, or obvious thrombus, demonstrating only mild diastolic dysfunction. The patient had no facial drop, or pronator drift. EEG demonstrated normal brain pattern. Over night the patient's headache primarily resolved, and she regained her typical cognitive capacity. She says that she does so currently have some headache that is transient however it is not bad. Neurology determine that this is likely the result of a complex migraine. The patient feels comfortable going home, and she feels that she can manage the care appropriately. - Time Spent with Patient Total time spent providing and/or coordinating discharge services: - Constitutional Vitals: Temp Pulse Resp BP Pulse Ox 98.0 F 80 15 101/68 96 11/24/16 11:50 11/24/16 11:50 11/24/16 11:50 11/24/16 11:50 11/24/16 11:50 General appearance: Present: A&O X 3, answers questions appropriately - Head Head exam: Present: atraumatic, normocephalic - Eye Eye exam: Present: PERRL, conjuntiva pink, sclera anicteric Pupils: Present: PERRL - Neck Neck exam general surgery: Present: supple, trachea midline. Absent: lymphadenopathy - Respiratory Respiratory exam: Present: CTAB. Absent: accessory muscle use, rales, rhonchi, wheezes - Cardiovascular Cardiovascular exam: Present: RRR, +S1, +S2. Absent: diastolic murmur, gallop, rubs, systolic murmur - GI/Abdominal GI/Abdominal exam: Present: normal bowel sounds, soft, no peritoneal signs. Absent: distended, tenderness - Extremities Exam Extremities exam: Present: warm, radial pulses palpable and symmetrical. Absent : calf tenderness, cyanotic, pedal edema - Neurological Exam Neurological exam: Present: CN II-XII intact, oriented X3, no focal deficits. Absent: pronater drift, facial droop, speech deficit - Skin Skin exam: Present: dry, intact <Claude Roberts - Last Filed: 11/24/16 17:32> Date of Encounter: 11/24/16 - Discharge Diagnosis (1) Complicated migraine Priority: Primary Status: Acute (2) Chronic headaches Status: Chronic Qualifiers: Headache type: unspecified Intractability: not intractable Qualified Code (s): R51 - Headache (3) UTI (urinary tract infection) Status: Acute Qualifiers: Urinary tract infection type: acute cystitis Hematuria presence: with hematuria Qualified Code(s): N30.01 - Acute cystitis with hematuria Procedures/tests Complete & Pending: Procedures Performed prior 72 hours Category Date Time Status MR head/brain wo con [MR] Stat MRI 11/23/16 19:34 Completed EV carotid duplex imaging BI Routine Y 11/24/16 19:36 Completed EV echocardiogram Routine Y 11/24/16 19:36 Completed Date of admission: 11/23/16 18:08 Primary care physician: Adri Andujar Consults: 11/24/16 08:00 Consult to Charger Tester [CONS] Routine Reason for SW Consult: Patient has financial concerns about hospital stay, has no health insurance. 11/24/16 14:44 Consult to Interpret Exam [CONS] Routine Consulting Provider: Filemon Donis Consult to Interpret Exam: Interpret EEG Hospital course: Ms. Merrill is a 56 year old female - Time Spent with Patient Total time spent providing and/or coordinating discharge services: - Constitutional Vitals: Temp Pulse Resp BP Pulse Ox 98.0 F 80 15 101/68 96 11/24/16 11:50 11/24/16 11:50 11/24/16 11:50 11/24/16 11:50 11/24/16 11:50 - Attending Attestation I examined this patient and my medical decision-making was reviewed with the Resident Physician on 11/24/16. I agree with the documented findings, disposition and treatment plan as described except to the extent set forth below. Ms. Merrill has been placed in observation for headache and transient mental status change. She is at baseline at this time. No fever or chills. No other new issues. Evaulated by neuro today and felt to have migraine. Exam Alert. Comfortable Not tachy No edema No wheeze Plan D/C today Migraine prophylaxis. Follow up as outpatient. Pt refused flu vaccine
--- NOTE | 2016-11-24 15:15 | EEG/EMG/Oth Biometrics Report ---
EEG Procedure Report Date of procedure: 11/24/16 EEG Procedure: Routine EEG Procedure Note: This EEG was acquired with standard international 10-20 system with EKG recording. The background EEG activity was characterized by the presence of posterior dominant alpha rhythm with the best frequency up to 11 Hz. The background activity was reactive to eye openings. Sleep stages were characterized by the presence of background fragmentation, vertex waves, K complexes, and sleep spindles. There are no electrographic seizures identified during this tracing. There are no epileptiform discharges and focal slowing noted during this recording. Photic stimulation produced and hyperventilation produced no abnormalities. Hyperventilation efforts appeared adequate due to development of diffuse background slow during and immediately after HV challenge. EKG tracing showed no significant cardiac dysrhythmia. Impression: This is essentially a normal awake and asleep EEG. Clinical Correlation: Normal EEGs, however, do not exclude epilepsy. Clinical correlation is advised.
--- NOTE | 2016-11-24 17:00 | Electrocardiograph Report ---
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
[2016-11-24] MEDS ORDERED: *HR* Enoxaparin 40 MG/0.4 ML SYRINGE SQ SCH (18:00)
--- NOTE | 2016-11-25 07:57 | Carotid Imaging Report ---
Carotid Duplex Patient Name:Yolanda Merrill Order Number:[id number] Procedure Date:11/24/2016 Date:1960Age:56 yrs Gender:Female Location:[facility] Room #: 3B52 Project Consultant:Mary Goddard Referring MD:Sabrina Ramirez BOXING INSTRUCTOR Reading MD:Jed Martinez MD Risk Factors Yes/No Hypertension No Diabetes No Hypercholesterolemia No Smoking Current No Smoker Previous No Hx of TIA No Hx of CVA No Impressions: The bilateral carotid arteries are normal throughout. Recommendations: After imaging the patient returned to their room. Findings Carotid Duplex: Right: The right proximal common carotid artery has a PSV of 57 cm/s and a EDV of 18 cm/s. The right mid common carotid artery has a PSV of 63 cm/s and a EDV of 26 cm/s. The right distal common carotid artery has a PSV of 55 cm/s and a EDV of 24 cm/s. The right bifurcation has a PSV of 57 cm/s and a EDV of 24 cm/s. The right proximal internal carotid artery has a PSV of 60 cm/s and a EDV of 29 cm/s. The right mid internal carotid artery has a PSV of 77 cm/s and a EDV of 29 cm/s. The right distal internal carotid artery has a PSV of 50 cm/s and a EDV of 23 cm/s. The right eca has a PSV of 67 cm/s and a EDV of 13 cm/s. The right vertebral artery has a PSV of 50 cm/s and a EDV of 22 cm/s. Left: The left proximal common carotid artery has a PSV of 64 cm/s and a EDV of 20 cm/s. The left mid common carotid artery has a PSV of 72 cm/s and a EDV of 24 cm/s. The left distal common carotid artery has a PSV of 62 cm/s and a EDV of 23 cm/s. The left bifurcation has a PSV of 59 cm/s and a EDV of 21 cm/s. The left proximal internal carotid artery has a PSV of 62 cm/s and a EDV of 23 cm/s. The left mid internal carotid artery has a PSV of 64 cm/s and a EDV of 27 cm/s. The left distal internal carotid artery has a PSV of 80 cm/s and a EDV of 38 cm/s. The left eca has a PSV of 77 cm/s and a EDV of 19 cm/s. The left vertebral artery has a PSV of 41 cm/s and a EDV of 19 cm/s. Carotid Results Right PSV EDV Assessment Proximal CCA 57 18 Normal Mid CCA 63 26 Normal Distal CCA 55 24 Normal Bifurcation 57 24 Normal Proximal ICA 60 29 Normal Mid ICA 77 29 Normal Distal ICA 50 23 Normal ECA 67 13 Normal Vertebral Artery 50 22 Normal Left PSV EDV Assessment Proximal CCA 64 20 Normal Mid CCA 72 24 Normal Distal CCA 62 23 Normal Bifurcation 59 21 Normal Proximal ICA 62 23 Normal Mid ICA 64 27 Normal Distal ICA 80 38 Normal ECA 77 19 Normal Vertebral Artery 41 19 Normal Ratio's Right ICA/CCA Ratio: 1.20 ICA/CCA Values: 77/63 Left ICA/CCA Ratio: 1.10 ICA/CCA Values: 80/72 Updated by Jed Martinez MD on 11/25/2016 7:51:03 AM electronically signed on 11/25/2016 7:53:25 AM with status of Final
== END 2016-11-24 16:00 | disposition home or self-care (01) ==
LOC: EMEROO 15:35 → 3BNU 15:35 → SUATTDRO 18:08 → 3BNU 18:24
PROVIDERS: ADMIT Internal Medicine; ATTEND Internal Medicine